=== PATIENT | female | born 1945 | race Two or more races ===

== ENCOUNTER 2022-04-01 14:56 | Emergency (ER) | payer OTHER ==
[~2022-04-01] VITALS: Ht 152.4 cm; Wt 54.4 kg
[2022-04-01] MEDS ORDERED: COZAAR50 MG PO (16:06)
[2022-04-01] MEDS ORDERED: GLUMETZA500 MG PO (16:06)
[2022-04-01] MEDS ORDERED: SYNTHROID75 MCG PO (16:07)
[2022-04-01] MEDS ORDERED: CRESTOR5 MG PO (16:07)
== END 2022-04-01 22:44 | disposition home or self-care (01) ==
LOC: ER 14:56
DX: J00 Acute nasopharyngitis [common cold] (principal); J45.909 Unspecified asthma, uncomplicated; I10 Essential (primary) hypertension; E11.9 Type 2 diabetes mellitus without complications; Z79.84 Long term (current) use of oral hypoglycemic drugs; Z20.822 Contact with and (suspected) exposure to COVID-19